=== PATIENT | female | born 1995 | race Caucasian/White ===

== ENCOUNTER 2018-06-20 13:21 | Emergency (ER) | payer SELFPAY ==
[~2018-06-20] VITALS: Ht 165.1 cm; Wt 83.9 kg
[2018-06-20 13:52] LABS: BILIRUBIN,URINE NEGATIVE (NEG); CLARITY,URINE CLEAR; COLOR,URINE YELLOW; NITRITE,URINE NEGATIVE (NEG); PROTEIN,URINE NEGATIVE (NEG-TRACE); UROBILINOGEN,URINE 0.2 mg/dL (0.2 mg/dL)
[2018-06-20 13:57] LABS: SQUAMOUS EPITHELIAL CELL,UR MANY /LPF
[2018-06-20 13:58] LABS: BACTERIA,URINE MODERATE /HPF (0-FEW); RBC,URINE OCC /HPF (0-2); TRICHOMONAS,URINE PRESENT
[2018-06-20] MEDS ORDERED: ONDANSETRON PF 4 MG/2 ML VIAL. IV ONE (14:15)
[2018-06-20] MEDS ORDERED: IV NORMAL SALINE 1000ML BAG 1,000 ML IV ONE (14:15)
[2018-06-20] MEDS ORDERED: fentaNYL PF VIAL 100 MCG/2 ML VIAL IV ONE ×2 (14:15→15:15)
--- NOTE | 2018-06-20 14:34 | RAD ---
PQRS Compliance Statement: One or more of the following individualized dose reduction techniques were utilized for this examination: 1. Automated exposure control 2. Adjustment of the mA and/or kV according to patient size 3. Use of iterative reconstruction technique CT ABDOMEN PELVIS WO CONTRAST Clinical Indication: R FLANK PAIN Comparison: None. Technique: Helical CT imaging of the abdomen and pelvis is performed without IV or oral contrast. Findings: Evaluation of solid organs and bowel is limited without oral and IV contrast, decreasing sensitivity for detection of pathology. Lung bases are clear. Cardiac size normal. Liver, gallbladder, spleen, pancreas, adrenal glands, and abdominal aorta caliber are normal. There is no perinephric stranding or hydronephrosis. There is no renal or ureteral calculus. Urinary bladder is normal. Stomach unremarkable. No dilated small bowel. The appendix is normal. There is no colon wall thickening. No abdominal adenopathy or free fluid. Uterus unremarkable. There is bilobed right adnexal cyst measuring 4 x 6 cm. Trace pelvic free fluid. Question 3.1 cm left adnexal cyst. No acute bone abnormality. IMPRESSION: 1. There is a bilobed 4 x 6 cm right adnexal cyst. There is a 3 cm left adnexal cyst. Trace pelvic free fluid. Recommend pelvic ultrasound for further evaluation. 2. No obstructive uropathy. The appendix is normal. Electronically signed by: Howard Quigley MD (06/20/2018 2:30 PM) [id number]
[2018-06-20 14:37] LABS: BASO % 0 % (0-3); EOS # 0.1 x10^3/uL (0.0-0.7); EOS % 1 % (0-3); HEMATOCRIT 44.7 % (36.0-47.0); LYMPH # 1.5 x10^3/uL (1.0-4.8); LYMPH % 13 % (24-48); MEAN CORPUSCULAR HEMOGLOBIN 30 pg (25-35); MEAN CORPUSCULAR HGB CONC 34 g/dL (31-37); MEAN CORPUSCULAR VOLUME 89 fL (79-100); MONO # 0.6 x10^3/uL (0.0-1.1); MONO % 5 % (0-9); NEUT # 9.8 x10^3uL (1.8-7.7); NEUT % 82 % (31-73); PLATELET COUNT 233 x10^3/uL (140-400); RED BLOOD COUNT 5.02 x10^6/uL (3.50-5.40); RED CELL DISTRIBUTION WIDTH 13.1 % (11.5-14.5)
[2018-06-20] MEDS ORDERED: AZITHROMYCIN 250 MG TABLET. PO ONE (14:45)
[2018-06-20] MEDS ORDERED: cefTRIAXone IM 250 MG VIAL IM ONE (14:45)
[2018-06-20] MEDS ORDERED: metroNIDAZOLE 500 MG TABLET PO ONE (14:45)
[2018-06-20 14:54] LABS: CALCIUM 9.2 mg/dL (8.5-10.1); CREATININE 0.8 mg/dL (0.6-1.0); GFR 88.9
[2018-06-20 14:57] LABS: ALBUMIN 3.5 g/dL (3.4-5.0); ALBUMIN/GLOBULIN RATIO 0.8 (1.0-1.7); TOTAL BILIRUBIN 0.4 mg/dL (0.2-1.0); TOTAL PROTEIN 7.9 g/dL (6.4-8.2)
--- NOTE | 2018-06-20 15:01 | PHYS DOC ---
Past Medical History Past Medical History: UTI (ANNELIESE WILD APRN) Past Surgical History: No Surgical History (ANNELIESE WILD APRN) Additional Information: 1/2 ppd Alcohol Use: None Drug Use: None (ANNELIESE WILD APRN) Adult General Chief Complaint Chief Complaint: FLANK PAIN HPI HPI Patient is a 22 year old female who presents with right flank pain and right lower abdominal pain. (ANNELIESE WILD APRN) Review of Systems Review of Systems Constitutional: Denies fever or chills [] Eyes: Denies change in visual acuity, redness, or eye pain [] HENT: Denies nasal congestion or sore throat [] Respiratory: Denies cough or shortness of breath [] Cardiovascular: No additional information not addressed in HPI [] GI: abdominal pain, + nausea, denies vomiting, bloody stools or diarrhea [] : Denies dysuria or hematuria [] Musculoskeletal: Denies back pain or joint pain [] Integument: Denies rash or skin lesions [] Neurologic: Denies headache, focal weakness or sensory changes [] All other systems were reviewed and found to be within normal limits, except as documented in this note. (ANNELIESE WILD APRN) Current Medications Current Medications Current Medications Medications (Trade) Dose Ordered Sig/Rowena Start Time Stop Time Status Last Admin Dose Admin Acetaminophen/ Hydrocodone Bitart (Lortab 5/325) 1 tab 1X ONCE 06/20/18 16:30 06/20/18 16:31 DC 06/20/18 16:29 1 TAB Azithromycin (Zithromax) 1,000 mg 1X ONCE 06/20/18 14:45 06/20/18 14:46 DC 06/20/18 14:52 1,000 MG Ceftriaxone Sodium (Rocephin Im) 250 mg 1X ONCE 06/20/18 14:45 06/20/18 14:46 DC 06/20/18 14:54 250 MG Fentanyl Citrate (Fentanyl 2ml Vial) 50 mcg 1X ONCE 06/20/18 15:15 06/20/18 15:16 DC 06/20/18 15:54 50 MCG Ibuprofen (Motrin) 600 mg 1X ONCE 06/20/18 16:30 06/20/18 16:31 DC 06/20/18 16:28 600 MG Metronidazole (Flagyl) 2,000 mg 1X ONCE 06/20/18 14:45 06/20/18 14:46 DC 06/20/18 14:53 2,000 MG Ondansetron HCl (Zofran) 4 mg 1X ONCE 06/20/18 14:15 06/20/18 14:16 DC 06/20/18 14:25 4 MG Sodium Chloride 1,000 ml @ 1,000 mls/hr 1X ONCE 06/20/18 14:15 06/20/18 15:14 DC 06/20/18 14:25 1,000 MLS/HR (ROLANDO MONTGOMERY DO) Allergies Allergies Allergies Coded Allergies Type Severity Reaction Last Updated Verified No Known Drug Allergies 06/20/18 No (ROLANDO MONTGOMERY DO) Physical Exam Physical Exam Constitutional: Well developed, well nourished, no acute distress, non-toxic appearance. [] HENT: Normocephalic, atraumatic, bilateral external ears normal, oropharynx moist, no oral exudates, nose normal. [] Eyes: PERRLA, EOMI, conjunctiva normal, no discharge. [] Neck: Normal range of motion, no tenderness, supple, no stridor. [] Cardiovascular:Heart rate regular rhythm, no murmur [] Lungs & Thorax: Bilateral breath sounds clear to auscultation [] Abdomen: Bowel sounds normal, soft, right-sided abdomen tenderness, no masses, no pulsatile masses. [] Skin: Warm, dry, no erythema, no rash. [] Back: No tenderness, no CVA tenderness. [] Extremities: No tenderness, no cyanosis, no clubbing, ROM intact, no edema. [] Neurologic: Alert and oriented X 3, normal motor function, normal sensory function, no focal deficits noted. [] Psychologic: Affect normal, judgement normal, mood normal. [] (ANNELIESE WILD APRN) Current Patient Data Vital Signs Vital Signs Date Time Temp Pulse Resp B/P (MAP) Pulse Ox O2 Delivery O2 Flow Rate FiO2 06/20/18 16:29 24 Room Air 06/20/18 15:54 98 06/20/18 15:52 72 122/75 (91) 06/20/18 13:39 98.1 98.1 (ROLANDO MONTGOMERY DO) Lab Values Laboratory Tests Test 06/20/18 13:30 06/20/18 13:38 06/20/18 14:20 Urine Collection Type Unknown Urine Color Yellow Urine Clarity Clear Urine pH 8.0 Urine Specific [place] 1.020 Urine Protein Negative mg/dL (NEG-TRACE) Urine Glucose (UA) Negative mg/dL (NEG) Urine Ketones (Stick) Negative mg/dL (NEG) Urine Blood Negative (NEG) Urine Nitrite Negative (NEG) Urine Bilirubin Negative (NEG) Urine Urobilinogen Dipstick 0.2 mg/dL (0.2 mg/dL) Urine Leukocyte Esterase Small (NEG) Urine RBC Occ /HPF (0-2) Urine WBC 5-10 /HPF (0-4) Urine Squamous Epithelial Cells Many /LPF Urine Bacteria Moderate /HPF (0-FEW) Urine Mucus Mod /LPF Urine Trichomonas Present POC Urine HCG, Qualitative Hcg negative (Negative) White Blood Count 12.0 x10^3/uL (4.0-11.0) H Red Blood Count 5.02 x10^6/uL (3.50-5.40) Hemoglobin 15.0 g/dL (12.0-15.5) Hematocrit 44.7 % (36.0-47.0) Mean Corpuscular Volume 89 fL (79-100) Mean Corpuscular Hemoglobin 30 pg (25-35) Mean Corpuscular Hemoglobin Concent 34 g/dL (31-37) Red Cell Distribution Width 13.1 % (11.5-14.5) Platelet Count 233 x10^3/uL (140-400) Neutrophils (%) (Auto) 82 % (31-73) H Lymphocytes (%) (Auto) 13 % (24-48) L Monocytes (%) (Auto) 5 % (0-9) Eosinophils (%) (Auto) 1 % (0-3) Basophils (%) (Auto) 0 % (0-3) Neutrophils # (Auto) 9.8 x10^3uL (1.8-7.7) H Lymphocytes # (Auto) 1.5 x10^3/uL (1.0-4.8) Monocytes # (Auto) 0.6 x10^3/uL (0.0-1.1) Eosinophils # (Auto) 0.1 x10^3/uL (0.0-0.7) Basophils # (Auto) 0.0 x10^3/uL (0.0-0.2) Sodium Level 136 mmol/L (136-145) Potassium Level 4.0 mmol/L (3.5-5.1) Chloride Level 101 mmol/L (98-107) Carbon Dioxide Level 29 mmol/L (21-32) Anion Gap 6 (6-14) Blood Urea Nitrogen 10 mg/dL (7-20) Creatinine 0.8 mg/dL (0.6-1.0) Estimated GFR (Cockcroft-Gault) 88.9 BUN/Creatinine Ratio 13 (6-20) Glucose Level 98 mg/dL (70-99) Calcium Level 9.2 mg/dL (8.5-10.1) Total Bilirubin 0.4 mg/dL (0.2-1.0) Aspartate Amino Transferase (AST) 19 U/L (15-37) Alanine Aminotransferase (ALT) 22 U/L (14-59) Alkaline Phosphatase 70 U/L (46-116) Total Protein 7.9 g/dL (6.4-8.2) Albumin 3.5 g/dL (3.4-5.0) Albumin/Globulin Ratio 0.8 (1.0-1.7) L Laboratory Tests 06/20/18 14:20 Laboratory Tests 06/20/18 14:20 Microbiology 06/20/18 Wet Prep - Final, Complete (ROLANDO MONTGOMERY DO) EKG EKG [] (ANNELIESE WILD APRN) Radiology/Procedures Radiology/Procedures [] (ANNELIESE WILD APRN) Impressions: [facility] [address] [place] [address] IMAGING REPORT Signed PATIENT: JAYDEN PORTER ACCOUNT: [id number] : 1995 LOCATION: ER AGE: 22 SEX: F EXAM STATUS: REG ER ORD. PHYSICIAN: ANNELIESE WILD APRN REASON: flank pain PROCEDURE: CT ABDOMEN PELVIS WO CONTRAST PQRS Compliance Statement: One or more of the following individualized dose reduction techniques were utilized for this examination: 1. Automated exposure control 2. Adjustment of the mA and/or kV according to patient size 3. Use of iterative reconstruction technique CT ABDOMEN PELVIS WO CONTRAST Clinical Indication: R FLANK PAIN Comparison: None. Technique: Helical CT imaging of the abdomen and pelvis is performed without IV or oral contrast. Findings: Evaluation of solid organs and bowel is limited without oral and IV contrast, decreasing sensitivity for detection of pathology. Lung bases are clear. Cardiac size normal. Liver, gallbladder, spleen, pancreas, adrenal glands, and abdominal aorta caliber are normal. There is no perinephric stranding or hydronephrosis. There is no renal or ureteral calculus. Urinary bladder is normal. Stomach unremarkable. No dilated small bowel. The appendix is normal. There is no colon wall thickening. No abdominal adenopathy or free fluid. Uterus unremarkable. There is bilobed right adnexal cyst measuring 4 x 6 cm. Trace pelvic free fluid. Question 3.1 cm left adnexal cyst. No acute bone abnormality. IMPRESSION: 1. There is a bilobed 4 x 6 cm right adnexal cyst. There is a 3 cm left adnexal cyst. Trace pelvic free fluid. Recommend pelvic ultrasound for further evaluation. 2. No obstructive uropathy. The appendix is normal. Electronically signed by: Howard Quigley MD (06/20/2018 2:30 PM) [id number] DICTATED and SIGNED BY: HOWARD QUIGLEY MD DATE: 06/20/[address] [place] [address] [place] [id number] IMAGING REPORT Signed PATIENT: JAYDEN PORTER ACCOUNT: [id number] : 1995 LOCATION: ER AGE: 22 SEX: F EXAM STATUS: REG ER ORD. PHYSICIAN: ANNELIESE WILD APRN REASON: PELVIC PAIN, STD PROCEDURE: PELVIS W/TV Ultrasound pelvis, ultrasound transvaginal 06/20/2017 CLINICAL INDICATION: Bilateral adnexal cysts. COMPARISON: CT abdomen and pelvis 06/20/2018. FINDINGS: Endovaginal and transabdominal images were obtained. The uterus measures 8.3 x 3.6 x 5.4 cm. The endometrium is normal in thickness for age with dual thickness measuring 6 mm. Left ovary measures 3.6 x 2.0 x 2.1 cm with normal color Doppler imaging and physiologic follicles. The right ovary is difficult to separate from right hydrosalpinx measuring 6.0 x 4.8 x 2.9 cm. Multiple images demonstrate small incomplete septations. No significant pelvic free fluid. IMPRESSION: 1. The right ovary is not well visualized and is not separable from a bilobed cystic structure with multiple thinning incomplete septations. Constellation of findings is favored to represent moderate hydrosalpinx with the ovary not definitively visualized and less likely a complex right ovarian mass. As the ovary is not well-visualized, short-term follow-up ultrasound in 6 weeks is recommended to assess for resolution versus MRI pelvis with contrast to exclude enhancing components. 2. Left ovary is visualized and unremarkable. Electronically signed by: Jacey Maxwell MD (06/20/2018 3:52 PM) [facility] DICTATED and SIGNED BY: JACEY MAXWELL MD DATE: 06/20/18 1547 (ANNELIESE WILD APRN) Course & Med Decision Making Course & Med Decision Making Right sided abdomen pain that wraps down into lower right abdomen pain. Abdomen is soft and nontender. Nausea present. 10 out of 10 sharp pain. Patient denied any vaginal discharge or dysuria but patient states that this feels like when she had a urinary tract infection the past. Vital signs are within normal limits and she is afebrile. Patient urinalysis came back showing bacteria and Trichomonas. Patient is treated for Trichomonas with Flagyl in the ED. Patient is also cultured and swab for gonorrhea and Chlamydia and told that those results to come back in 48 hours and that we would call her if they are positive only. Patient is also treated for gonorrhea and chlamydia. Pelvic exam is documented below she did have cervical motion tenderness. Patient most likely has some pelvic inflammatory disease along with the cysts that are noted below found on CT scan causing her pain. Patient does have a white blood cell count of 12.0. Wet Prep shows yeast also. Patient will be treated for cervicitis with Doxycycline and given Diflucan to take after she finishes the antibiotic. Patient will need to follow-up with gynecology in 6 weeks for a follow-up ultrasound. Abdomen pelvis CT shows : 1. There is a bilobed 4 x 6 cm right adnexal cyst. There is a 3 cm left adnexal cyst. Trace pelvic free fluid. Recommend pelvic ultrasound for further evaluation. 2. No obstructive uropathy. The appendix is normal. US shows: 1. The right ovary is not well visualized and is not separable from a bilobed cystic structure with multiple thinning incomplete septations. Constellation of findings is favored to represent moderate hydrosalpinx with the ovary not definitively visualized and less likely a complex right ovarian mass. As the ovary is not well-visualized, short-term follow-up ultrasound in 6 weeks is recommended to assess for resolution versus MRI pelvis with contrast to exclude enhancing components. 2. Left ovary is visualized and unremarkable. Pelvic Exam: Fax Machine Repairer present Abdomen: Nontender External Genitalia: Normal Skin Speculum: Cervical OS is erythematous but not friable, Normal vaginal mucosa, White cervical discharge Bimanual: No adnexal masses or tenderness, yes CMT (ANNELIESE WILD APRN) Dragon Disclaimer Dragon Disclaimer This electronic medical record was generated, in whole or in part, using a voice recognition dictation system. (ANNELIESE WILD APRN) Departure Departure Impression: Primary Impression: Sexually transmitted disease Additional Impressions: Ovarian cyst Cervicitis Disposition: HOME, SELF-CARE Condition: STABLE Referrals: NO PCP (PCP) AVA ORDAZ Jr, MD Patient Instructions: Cervicitis, Ovarian Cyst, Sexually Transmitted Disease Additional Instructions: Follow-up with gynecology in 6 weeks for a follow-up ultrasound or sooner if you are not feeling better. Take medications as prescribed. Have your sexual partner gets treated for STDs. Scripts Hydrocodone/Apap 5-325 (NORCO 5-325 TABLET) 1 Each Tablet 1 TAB PO PRN Q6HRS PRN for PAIN, #10 TAB 0 Refills Prov: ANNELIESE WILD APRN 06/20/18 Fluconazole (DIFLUCAN) 150 Mg Tablet 1 TAB PO ONCE, #1 TAB 1 Refill TAKE AFTER YOU HAVE FINISHED ANTIBIOTIC Prov: ANNELIESE WILD APRN 06/20/18 Ondansetron (ONDANSETRON ODT) 4 Mg Tab.rapdis 4 MG PO PRN Q6-8HRS PRN for NAUSEA/VOMITING, #15 TAB Prov: ANNELIESE WILD APRN 06/20/18 Doxycycline Monohydrate (DOXYCYCLINE MONOHYDRATE) 100 Mg Capsule 1 CAP PO BID for 7 Days, #14 CAP Prov: ANNELIESE WILD APRN 06/20/18 Attending Signature Attending Signature I have reviewed the PA/HUMAN DEVELOPMENT PROFESSOR's note and plan of care. I was available for consultation as needed during the patient's visit in the emergency department. I agree with the clinical impression, plan, and disposition. (ROLANDO MONTGOMERY DO) Problem Qualifiers Additional Impressions: Ovarian cyst Laterality: bilateral Qualified Codes: N83.201 - Unspecified ovarian cyst, right side; N83.202 - Unspecified ovarian cyst, left side ANNELIESE WILD APRN Jun 20, 2018 15:01 ROLANDO MONTGOMERY DO Jun 20, 2018 17:47
[2018-06-20 15:52] VITALS: BP 122/75
--- NOTE | 2018-06-20 15:57 | RAD ---
Ultrasound pelvis, ultrasound transvaginal 06/20/2017 CLINICAL INDICATION: Bilateral adnexal cysts. COMPARISON: CT abdomen and pelvis 06/20/2018. FINDINGS: Endovaginal and transabdominal images were obtained. The uterus measures 8.3 x 3.6 x 5.4 cm. The endometrium is normal in thickness for age with dual thickness measuring 6 mm. Left ovary measures 3.6 x 2.0 x 2.1 cm with normal color Doppler imaging and physiologic follicles. The right ovary is difficult to separate from right hydrosalpinx measuring 6.0 x 4.8 x 2.9 cm. Multiple images demonstrate small incomplete septations. No significant pelvic free fluid. IMPRESSION: 1. The right ovary is not well visualized and is not separable from a bilobed cystic structure with multiple thinning incomplete septations. Constellation of findings is favored to represent moderate hydrosalpinx with the ovary not definitively visualized and less likely a complex right ovarian mass. As the ovary is not well-visualized, short-term follow-up ultrasound in 6 weeks is recommended to assess for resolution versus MRI pelvis with contrast to exclude enhancing components. 2. Left ovary is visualized and unremarkable. Electronically signed by: Steven Maxwell MD (06/20/2018 3:52 PM) [facility]
[2018-06-20] MEDS ORDERED: ONDA4TAB12 PO (16:07)
[2018-06-20] MEDS ORDERED: DOXY100C14 PO (16:07)
[2018-06-20] MEDS ORDERED: FLUC150T PO (16:08)
[2018-06-20] MEDS ORDERED: HYDR-3164 PO (16:09)
[2018-06-20] MEDS ORDERED: HYDROcodone/APAP 5/325MG 1 TAB TABLET PO ONE (16:30)
[2018-06-20] MEDS ORDERED: IBUPROFEN 600 MG TABLET. PO ONE (16:30)
[2018-06-21 13:23] LABS: GC PROBE Negative (Negative)
== END 2018-06-20 16:34 | disposition home or self-care (01) ==
LOC: ER 13:21
DX: A64 Unspecified sexually transmitted disease (principal); N70.11 Chronic salpingitis; N83.202 Unspecified ovarian cyst, left side; N83.201 Unspecified ovarian cyst, right side; F17.200 Nicotine dependence, unspecified, uncomplicated
CPT/HCPCS: 36415; 74176; 76830; 76856; 80053; 81001; 81025; 85025; 87086; 87491; 87591; 96372; 96374; 96375; 96376; 99284; J0696; J2405; J3010; J7030; Q0111; Q0144